=== PATIENT | male | born 1980 | race Caucasian/White ===

== ENCOUNTER 2017-07-20 21:51 | Emergency (ER) | payer OTHER ==
[~2017-07-20] VITALS: Ht 177.8 cm; Wt 77.2 kg
[~2017-07-20 21:51] MED LIST: ALLERGY RELIEF1 EAC1 PO; ALLERGY10 M1 PO; BACTRIM,SEPT1 TABLET PO; CLINDAMYCIN HC300 MG PO; ULTRAM50 MG PO
[2017-07-20 21:55] VITALS: BP 152/86
[2017-07-20 23:17] LABS: BASOPHIL COUNT 0.1 K/uL (0-0.1); EOSINOPHIL (%) 3.6 % (0-5); EOSINOPHIL COUNT 0.2 K/uL (0-0.3); HEMATOCRIT 41.3 % (38.0-50.0); IMMATURE GRANULOCYTE (%) 0.2 % (0.0-0.7); INSTRUMENT ABS NEUTROPHIL CT 2.9 K/uL; LYMPHOCYTE COUNT 2.1 K/uL (1.0-2.8); MCH 30.8 PG (29.0-34.0); MCHC 34.6 G/DL (30.0-36.0); MCV 88.8 FL (86-99); MEAN PLAT.VOLUME 9.7 uM^3 (9.0-12.4); MONOCYTE (%) 9.2 % (3-12); MONOCYTE COUNT 0.5 K/uL (0-0.8); NEUTROPHIL (%) 50.4 % (45-76); NEUTROPHIL COUNT 2.9 K/uL (1.8-6.4); PLATELET COUNT 200 K/uL (156-360); RBC DIS.WIDTH-CV 12.2 % (11.8-14.6); RBC DIS.WIDTH-SD 39.6 % (39-53); RED BLOOD COUNT 4.65 M/uL (4.00-5.50); WHITE BLOOD COUNT 5.8 K/uL (4.1-10.2)
[2017-07-20 23:30] LABS: CHLORIDE 108 mEq/L (99-109); POTASSIUM 4.4 mEq/L (3.7-5.4); SODIUM 143 mEq/L (136-147)
[2017-07-20 23:32] LABS: GLUCOSE 97 mg/dL (70-99)
[2017-07-20 23:34] LABS: ANION GAP 7 MEQ/L (2-14); TOTAL BILIRUBIN 0.5 mg/dL (0.0-1.0)
[2017-07-20 23:36] LABS: ALKALINE PHOSPHATASE 72 IU/L (3-129); GFR ESTIMATE (CALCULATED) > 59 mL/min/
[2017-07-20 23:37] LABS: UREA NITROGEN (BUN) 15 mg/dL (9-23)
[2017-07-20 23:38] LABS: DIRECT BILIRUBIN 0.2 mg/dL (0.0-0.3)
[2017-07-21 12:27] LABS: HPCA INDEX 0.17
[2017-07-21 12:28] LABS: ANTI-HEPATITIS B CORE (TOTAL) Nonreactive; HBCT INDEX 0.06; HIV INDEX 0.08; HIV-1/2 AB/AG COMBO Nonreactive
[2017-07-21 12:57] LABS: AHBS INDEX 11.55
[2017-07-21 13:19] LABS: HEPATITIS B SURFACE ANTIBODY EQUIVOCAL
== END 2017-07-21 00:40 | disposition home or self-care (01) ==
LOC: EME 21:51
PROVIDERS: Emergency Medicine
DX: S61.432A Puncture wound without foreign body of left hand, initial encounter (principal); W46.1XXA Contact with contaminated hypodermic needle, initial encounter; Z77.21 Contact with and (suspected) exposure to potentially hazardous body fluids; Y99.0 Civilian activity done for income or pay
CPT/HCPCS: 80053; 82248; 84100; 85025; 86703; 86704; 86706; 86803; 87340; 99281; 99283